=== PATIENT | male | born 1945 | race Caucasian/White ===

== ENCOUNTER 2021-06-21 10:20 | Emergency (ER) | payer MEDICARE, OTHER, SELFPAY ==
[2021-06-21] VITALS (15 sets, daily range): BP systolic 63–174; BP diastolic 35–120; PULSE 94–136; RESP 17–32; TEMP 37.2–37.8; O2SAT 92–98; BMI 25.4
--- NOTE | 2021-06-21 10:40 | EKG12_ITS ---
Test Reason : FALL Blood Pressure : / mmHG Vent. Rate : 114 BPM Atrial Rate : 114 BPM P-R Int : 000 ms QRS Dur : 060 ms QT Int : 362 ms P-R-T Axes : 000 030 049 degrees QTc Int : 498 ms Normal sinus rhythm with PAC's Low voltage QRS ST & T wave abnormality, consider lateral ischemia Abnormal ECG Confirmed by SHIRLENE DEVI, LC ([id number]), online editor MARILUZ MORAN ([id number]) on 06/22/2021 8:00:10 AM Referred By: RADHA Confirmed By:LC GARBER MD
--- NOTE | 2021-06-21 10:43 | ED.RN ---
pt posturing. able to respond and answer very basic questions with yes.no not consistently.
--- NOTE | 2021-06-21 11:19 | CT_ITS ---
EXAM: CT HEAD WITHOUT INTRAVENOUS CONTRAST : 1945 CLINICAL INDICATION: Altered mental status TECHNIQUE: Multiple axial images were obtained of the head without intravenous contrast. This CT exam was performed using one or more of the following dose reduction techniques: automated exposure control, adjustment of the mA and/or kV according to patient size, and/or use of iterative reconstruction technique. This report was created using [employer] report generation technology. COMPARISON: None. FINDINGS: BRAIN AND EXTRA-AXIAL SPACES: The ventricular system and cortical sulci are at the upper limits of normal in size. There is hypoattenuation in the periventricular white matter. There is a lacunar infarct in the left basal ganglia. No intra- or extra-axial hemorrhage. No intracranial mass or mass effect. Posterior fossa structures are unremarkable. Basal cisterns are patent. BONES/JOINTS: Unremarkable. No discrete lytic or blastic abnormalities. SINUSES: Unremarkable as visualized. Clear. MASTOID AIR CELLS: Unremarkable. Clear. ORBITS: Visualized globes, extraocular muscles, optic nerves and retrobulbar fat appear unremarkable. CT/Brain/Head without Contrast IMPRESSION: 1. No acute intracranial abnormality. 2. Underlying small vessel ischemia. There is a lacunar infarct in the left basal ganglia. The elbow Individualized dose optimization techniques were used for this CT. at 1203 Reported and signed by: Enrrique Gustafson MD Electronically Signed: Enrrique Gusatfson MD at 12:02 EDT Tel , Service support ,
[2021-06-21 11:49] LABS: Absolute Lymphocyte Count 0.37 X10^3/uL (0.83-4.51); Absolute Neutrophil Count 8.9 X10^3/uL (2.0-7.7); Basophil# 0.05 X10^3/uL; Basophil% 0.5 % (0-1); Eosinophil# 0.83 X10^3/uL; Eosinophils% 7.7 % (0-5); Hematocrit 37.6 % (40-54); Hemoglobin 12.9 g/dL (13.0-16.5); Lymphocyte # 0.37 X10^3/ul (0.83-4.51); Lymphocyte % 3.4 % (19-41); Mean Corp Hgb Conc 34.3 g/dL (32-36); Mean Corpuscular Hgb 32.7 pg (27.0-32.0); Mean Corpuscular Volume 95.2 fL (80-94); Monocyte# 0.66 X10^3/uL; Monocyte% 6.1 % (0-10); NRBC Flagged by Analyzer 0 % (0-5); Neutrophil # 8.85 X10^3/uL (2.7-7.7); Neutrophil % 81.7 % (47-70); POSITIVE DIFFERENTIAL YES; POSITIVE MORPHOLOGY YES; Platelet Count 135 K/mm3 (150-450); RBC Distribution Width CV 15.8 % (11.6-14.6); RBC Distribution Width SD 54.4 fl (35.1-43.9); Red Blood Count 3.95 M/mm3 (4.6-6.2); White Blood Count 10.8 K/mm3 (4.4-11.0)
--- NOTE | 2021-06-21 11:49 | EDS_ITS ---
HPI History of Present Illness Chief Complaint: Alt LOC Informant: EMS and SNF Onset/Context/Timing Onset: Today Context: Sudden Onset Timing: Continuous Worsened by: Nothing Relieved by: Nothing Narrative Narrative: Patient presents with altered mental status that began after a fall today. Patient only answers yes/no questions. Patient is a poor historian. skilled nursing staff reports that the patient has been incontinent today as well. Nursing staff states that the patient is not normally incontinent. skilled nursing staff is unsure if the patient hit his head when he fell. [facility] Medical History CHF (congestive heart failure) Chronic kidney disease Congestive heart disease Diabetes Failure to thrive Frequent falls Hyperlipidemia Mild cognitive impairment Home Medications allopurinol 300 mg PO DAILY 04/03/15 [History Last Taken 06/20/21] acetaminophen 650 mg PO Q4H PRN 06/21/21 [History Last Taken 06/18/21] bumetanide 1 mg PO DAILY 06/21/21 [History Last Taken 06/20/21] ferrous sulfate 325 mg PO DAILY 06/21/21 [History Last Taken 06/20/21] gabapentin 200 mg PO TID 06/21/21 [History Last Taken 06/20/21] losartan 25 mg PO DAILY 06/21/21 [History Last Taken 06/20/21] potassium chloride 10 meq PO DAILY 06/21/21 [History Last Taken 06/20/21] zolpidem [Ambien] 5 mg PO QHS 06/21/21 [History Last Taken Unknown] Allergy/AdvReac Type Severity Reaction Status Date / Time niacin Allergy Other Verified 06/21/21 10:26 Social History Smoking Status: Former smoker ROS ROS ED Review of Systems ROS Unobtainable: due to mental status EXAM Physical Exam Const Vital Signs: 06/21/21 10:22 06/21/21 11:54 06/21/21 12:00 Temperature 99.9 F H Temperature Source Temporal Pulse Rate 126 H 136 H 122 H Respiratory Rate 17 18 18 Blood Pressure 159/120 H 138/91 H 174/81 H Blood Pressure Mean 133 106 112 Blood Pressure Source Blood Pressure Position Blood Pressure Location Pulse Ox 96 96 95 Oxygen Delivery Method Room Air Room Air Room Air Oxygen Flow Rate (L/min) 06/21/21 13:44 06/21/21 14:00 06/21/21 14:25 Temperature Temperature Source Pulse Rate 121 H 114 H 120 H Respiratory Rate 17 24 H Blood Pressure 154/99 H 109/76 88/57 L Blood Pressure Mean 117 87 67 Blood Pressure Source Blood Pressure Position Blood Pressure Location Pulse Ox 95 96 Oxygen Delivery Method Room Air Room Air Oxygen Flow Rate (L/min) 06/21/21 14:50 06/21/21 14:58 06/21/21 15:34 Temperature Temperature Source Pulse Rate 117 H Respiratory Rate 28 H Blood Pressure 108/72 113/80 90/51 L Blood Pressure Mean 84 91 64 Blood Pressure Source Blood Pressure Position Blood Pressure Location Pulse Ox Oxygen Delivery Method Oxygen Flow Rate (L/min) 06/21/21 16:00 06/21/21 16:25 06/21/21 16:46 Temperature 100.1 F H 99.8 F H Temperature Source Temporal Temporal Pulse Rate 103 H 97 96 Respiratory Rate 32 H 25 H 25 H Blood Pressure 71/40 L 65/38 L 63/36 L Blood Pressure Mean 50 47 45 Blood Pressure Source Monitor Monitor Blood Pressure Position Left Lateral Left Lateral Blood Pressure Location Right Arm Right Arm Pulse Ox 92 95 Oxygen Delivery Method Room Air Room Air Room Air Oxygen Flow Rate (L/min) 93 06/21/21 17:00 Temperature Temperature Source Pulse Rate 94 Respiratory Rate 25 H Blood Pressure 75/35 L Blood Pressure Mean 48 Blood Pressure Source Blood Pressure Position Blood Pressure Location Pulse Ox 94 Oxygen Delivery Method Room Air Oxygen Flow Rate (L/min) Positive well nourished and well developed General Appearance ED: well developed Eyes PERRL and EOMs intact bilaterally Neck supple and no JVD Chest Wall inspection of chest normal and palpation of chest normal Resp normal respiratory effort and clear to auscultation bilaterally Cardio regular rate and regular rhythm GI normal to inspection, nondistended, normoactive bowel sounds and non-tender Palpation: soft Neuro CN's II-XII intact bilaterally and no sensory deficits noted Sensorium / Orientation: alert MDM MDM MDM Narrative Medical decision making narrative: Patient was given IV fluids. EKG was obtained. On my interpretation, it shows sinus tachycardia with a rate of 114 with frequent PACs. There are nonspecific ST-T wave changes in V4, V5, and V6. [place] was normal. QRS interval and QTc intervals are normal. CBC shows hemoglobin of 12.9 hematocrit 37.6. Platelets were 135. Comprehensive metabol ic profile showed a BUN of 22 and a creatinine 1.46. PT with INR and PTT were within normal limits. Total bilirubin was 2.5. Alk phos was 149. AST and ALT were essentially within normal limits. Initial lactate was 5.1. Patient was given a dose of Unasyn here. Urinalysis does not show any evidence of urinary tract infection. Portable chest x-ray was obtained. There is trace left pleural effusion. There is no acute cardiopulmonary process noted. There may be a hiatal hernia. This was interpreted by myself. Radiologist also interpreted the x-ray and agrees. CT scan of the brain was obtained. There is no acute intracranial abnormality. This was interpreted by the radiologist and reviewed by myself. Repeat lactate was 4.3. There was bilateral flank ecchymosis noted on reevaluation. Because of this, CT scan of the abdomen pelvis was obtained without contrast. There is large amount of free fluid in the abdomen and pelvis. There is no free air. This was interpreted by the radiologist and reviewed by myself. Since the patient has no history of liver disease and his liver function tests are essentially within normal limits along with the recent fall, the fluid in the abdomen and pelvis could be blood. I discussed the findings with the patient's power of civil litigation attorney. We discussed treatment options including transfer to a trauma center for possible surgical exploration or making the patient hospice. She wanted to talk to her regarding treatment options. Patient did have other episodes of hypotension and was responsive to IV fluids. Patient was typed and crossed for 2 units of blood. The transfusion was started. I discussed the case again with the patient's power of civil litigation attorney. At this time she wants patient to be transferred to a trauma center for further evaluation. I discussed the case with trauma surgeon at [facility]. She recommended giving the patient 2 units of fresh frozen plasma and a unit of platelets. These were ordered. Patient will be transferred to [facility] via [facility]. Lab Data Attestation: I reviewed the patient's lab results. Labs: Laboratory Results - last 24 hr 06/21/21 06/21/21 06/21/21 10:10 10:10 11:40 WBC 10.8 RBC 3.95 L Hgb 12.9 L Hct 37.6 L MCV 95.2 H MCH 32.7 H MCHC 34.3 RDW Std Deviation 54.4 H RDW Coeff of Dennis 15.8 H Plt Count 135 L MPV 12.0 Immature Gran % (Auto) 0.600 Neut % (Auto) 81.7 H Lymph % (Auto) 3.4 L [place] % (Auto) 6.1 Eos % (Auto) 7.7 H Baso % (Auto) 0.5 Absolute Neuts (auto) 8.9 H Absolute Lymphs (auto) 0.37 L Nucleated RBC % 0 Platelet Estimate SLT DEC RBC Morphology NORM C+C PT 16.1 H INR 1.4 APTT 33.0 Sodium 138 Potassium 3.9 Chloride 102 Carbon Dioxide 23.0 Anion Gap 13 BUN 22 H Creatinine 1.46 H Estim Creat Clear Calc 42.29 Est GFR (MDRD) Af Amer 60 Est GFR (MDRD) Non-Af 50 L BUN/Creatinine Ratio 15.1 Glucose 140 H Lactic Acid Calcium 9.3 Total Bilirubin 2.50 H AST 47 H ALT 30 Alkaline Phosphatase 149 H Troponin I High Sens 43 Total Protein 6.8 Albumin 2.3 L Globulin 4.5 H Albumin/Globulin Ratio 0.5 L Urine Color Urine Clarity Urine pH Ur Specific [place] Urine Protein Urine Glucose (UA) Urine Ketones Urine Occult Blood Urine Nitrite Urine Bilirubin Urine Urobilinogen Ur Leukocyte Esterase Urine RBC Urine WBC Ur Squamous Epith Cells Urine Bacteria Urine Mucus Blood Type Antibody Screen Crossmatch 06/21/21 06/21/21 06/21/21 11:40 12:05 14:50 WBC RBC Hgb Hct MCV MCH MCHC RDW Std Deviation RDW Coeff of Dennis Plt Count MPV Immature Gran % (Auto) Neut % (Auto) Lymph % (Auto) [place] % (Auto) Eos % (Auto) Baso % (Auto) Absolute Neuts (auto) Absolute Lymphs (auto) Nucleated RBC % Platelet Estimate RBC Morphology PT INR APTT Sodium Potassium Chloride Carbon Dioxide Anion Gap BUN Creatinine Estim Creat Clear Calc Est GFR (MDRD) Af Amer Est GFR (MDRD) Non-Af BUN/Creatinine Ratio Glucose Lactic Acid 5.1 H* Calcium Total Bilirubin AST ALT Alkaline Phosphatase Troponin I High Sens Total Protein Albumin Globulin Albumin/Globulin Ratio Urine Color Yellow Urine Clarity Sl. Cloudy Urine pH 6.0 Ur Specific [place] 1.015 Urine Protein Negative Urine Glucose (UA) Normal Urine Ketones Negative Urine Occult Blood Negative Urine Nitrite Negative Urine Bilirubin Negative Urine Urobilinogen Normal Ur Leukocyte Esterase Negative Urine RBC 0 SEEN Urine WBC 0 SEEN Ur Squamous Epith Cells 0-5 SEEN Urine Bacteria 0 SEEN Urine Mucus 0 SEEN Blood Type O POSITIVE Antibody Screen NEGATIVE Crossmatch 06/21/21 06/21/21 14:50 15:58 WBC RBC Hgb Hct MCV MCH MCHC RDW Std Deviation RDW Coeff of [place] Plt Count MPV Immature Gran % (Auto) Neut % (Auto) Lymph % (Auto) [place] % (Auto) Eos % (Auto) Baso % (Auto) Absolute Neuts (auto) Absolute Lymphs (auto) Nucleated RBC % Platelet Estimate RBC Morphology PT INR APTT Sodium Potassium Chloride Carbon Dioxide Anion Gap BUN Creatinine Estim Creat Clear Calc Est GFR (MDRD) Af Amer Est GFR (MDRD) Non-Af BUN/Creatinine Ratio Glucose Lactic Acid 4.3 H* Calcium Total Bilirubin AST ALT Alkaline Phosphatase Troponin I High Sens Total Protein Albumin Globulin Albumin/Globulin Ratio Urine Color Urine Clarity Urine pH Ur Specific [place] Urine Protein Urine Glucose (UA) Urine Ketones Urine Occult Blood Urine Nitrite Urine Bilirubin Urine Urobilinogen Ur Leukocyte Esterase Urine RBC Urine WBC Ur Squamous Epith Cells Urine Bacteria Urine Mucus Blood Type Antibody Screen Crossmatch See Detail Radiography Diagnostic Testing: Radiology Impression Brain CT 06/21/21 11:19 IMPRESSION: 1. No acute intracranial abnormality. 2. Underlying small vessel ischemia. There is a lacunar infarct in the left basal ganglia. The elbow Individualized dose optimization techniques were used for this CT. at 1203 Reported and signed by: Enrrique Gustafson MD Electronically Signed: Enrrique Gustafson MD at 12:02 EDT Tel , Service support , Chest X-Ray 06/21/21 12:05 IMPRESSION: Retrocardiac lucency which may represent a hiatal hernia. There is a trace left-sided effusion. at 1229 Reported and signed by: Enrrique Gustafson MD Electronically Signed: Enrrique Gustafson MD at 12:28 EDT Tel , Service support , Abdomen/Pelvis CT 06/21/21 13:24 IMPRESSION: 1. Bilateral effusions larger on the left than on the right with bibasilar atelectasis or pneumonia. 2. Large amount of free fluid in the abdomen and pelvis with may represent ascites. 3. Ventral hernia which contains a loop of small bowel. There is no obstruction identified. Individualized dose optimization techniques were used for this CT. at 1429 Reported and signed by: Enrrique Gustafson MD Electronically Signed: Enrrique Gustafson MD at 14:28 EDT Tel , Service support , EKG Initial EKG: Attestation: I personally reviewed and interpreted this EKG as follows: Interpretation: Sinus Tachycardia (114) and Non-Specific ST Changes Critical Care Time Critical care time (excluding procedures): 30-74 minutes (42), Including time spent:, Discussing w/Patient &/or Family/Twister Frame Tender, Discussing w/Consultants, Arranging Admission or Transfer and Performing Direct Patient Care at Bedside Discharge Plan Triage Chief Complaint: Alt LOC ED Provider: Karlos Parker Dx/Rx/DC Orders Clinical Impression: Active internal bleeding, Hypotension Prescriptions: No Action allopurinol 300 MG tablet 300 mg PO DAILY RF: 0 potassium chloride 10 mEq Tablet Extended Release 10 meq PO DAILY RF: 0 ferrous sulfate 325 mg (65 mg iron) Tablet 325 mg PO DAILY RF: 0 losartan 25 mg Tablet 25 mg PO DAILY RF: 0 bumetanide 1 mg Tablet 1 mg PO DAILY RF: 0 acetaminophen 325 mg Tablet 650 mg PO Q4H PRN (Reason: PAIN AND FEVER) RF: 0 zolpidem [Ambien] 5 mg tablet 5 mg PO QHS RF: 0 gabapentin 100 mg capsule 200 mg PO TID RF: 0 Primary Care Provider: Yemi Verma Referrals: Yemi Verma MD [Primary Care Provider] - Disposition Disposition: Acute Care Hospital Discharge Location: [facility]
[2021-06-21 11:50] LABS: Differential Indicated SCAN CRITERIA MET
[2021-06-21 11:55] LABS: International Normalized Ratio 1.4; Prothrombin Time (Protime)PT. 16.1 SECONDS (11.7-14.9)
[2021-06-21 12:04] LABS: ALB/GLOB Ratio 0.5 RATIO (0.9-2.4); AST(SGOT) 47 U/L (15-37); Alanine Aminotransfer ALT/SGPT 30 U/L (16-61); Albumin, Serum 2.3 g/dL (3.2-5.0); Alkaline Phosphatase 149 U/L (45-117); Anion Gap 13 (5-15); BUN 22 mg/dL (7-18); BUN/Creat Ratio 15.1 RATIO (10-20); Calcium,Total 9.3 mg/dL (8.5-10.1); Chloride 102 mmol/L (98-107); Creatinine, Serum 1.46 mg/dL (0.70-1.30); EST Glomerular Filtration Rate 50 mL/min (>60); Est Glom Filt Rate - Afr Amer 60 mL/min (>60); Estimated Creatinine Clearance 42.29 ml/min; Globulin 4.5 g/dL (2.2-4.2); Glucose 140 mg/dL (74-106); Potassium 3.9 mmol/L (3.5-5.1); Protein, Total 6.8 g/dL (6.4-8.2); Sodium Level 138 mmol/L (136-145); Troponin-I HS 43 pg/mL (3.0-78.0)
--- NOTE | 2021-06-21 12:05 | RAD_ITS ---
EXAM: XR CHEST, 1 VIEW : 1945 CLINICAL INDICATION: Cough TECHNIQUE: Frontal view of the chest. This report was created using [employer] report generation technology. COMPARISON: None. FINDINGS: LUNGS AND PLEURAL SPACES: There is minimal blunting the left costophrenic angle which may represent a trace effusion or scarring. No pneumothorax. HEART: Unremarkable. Cardiac silhouette not enlarged. MEDIASTINUM: There is a retrocardiac lucency which may represent a hiatal hernia. BONES/JOINTS: Unremarkable. SOFT TISSUES: Unremarkable. RAD/Chest 1 View (Portable) IMPRESSION: Retrocardiac lucency which may represent a hiatal hernia. There is a trace left-sided effusion. at 1229 Reported and signed by: Enrrique Gustafson MD Electronically Signed: Enrrique Gustafson MD at 12:28 EDT Tel , Service support ,
[2021-06-21 12:08] LABS: Bacteria 0 SEEN /hpf (None Seen); Mucous, Urine 0 SEEN /hpf (<or=2+); Red Blood Cells-Urine 0 SEEN /hpf (0-5); White Blood Cells 0 SEEN /hpf (0-5)
[2021-06-21 12:11] LABS: Color, Urine Yellow (Yellow); Glucose, Dipstick Normal (Normal); Ketone-Dipstick Negative (Negative); Leukocyte Esterase-Dipstick Negative /ul (Negative); Nitrite-Dipstick Negative (Negative); Occult Blood-Urine Negative /ul (Negative); Protein-Dipstick Negative (Negative); Specific Gravity, Urine 1.015 (1.002-1.030); Urine Bilirubin Dipstick Negative (Negative); Urine Clarity Sl. Cloudy (Clear); Urine Urobilinogen Normal (Normal)
[2021-06-21 12:13] LABS: Platelet Estimate SLT DEC (ADEQ); Red Cell Morphology NORM C+C NORMAL (NORM C&C)
[2021-06-21 12:18] LABS: Squamous Epithelial Cells - UA 0-5 SEEN /hpf (0-5)
[2021-06-21 12:22] LABS: Lactic Acid 5.1 mmol/L (0.4-1.9)
--- NOTE | 2021-06-21 13:24 | CT_ITS ---
EXAM: CT ABDOMEN AND PELVIS WITHOUT INTRAVENOUS CONTRAST : 1945 CLINICAL INDICATION: Bilateral flank pain TECHNIQUE: Helically acquired images were obtained of the abdomen and pelvis without intravenous contrast. This CT exam was performed using one or more of the following dose reduction techniques: automated exposure control, adjustment of the mA and/or kV according to patient size, and/or use of iterative reconstruction technique. This report was created using [employer] report generation technology. COMPARISON: None. FINDINGS: LOWER THORAX: There are bilateral effusions with bilateral lower lobe consolidation greater on the left than on the right. There is a small hiatal hernia present. No cardiomegaly. ABDOMEN: LIVER: Unremarkable. Homogeneous. GALLBLADDER AND BILE DUCTS: Unremarkable. No calcified gallstones. No gallbladder distention or wall edema. No intra- or extrahepatic biliary ductal dilation. PANCREAS: Unremarkable. No focal cystic mass. SPLEEN: Unremarkable. Normal size without focal cystic or solid mass. ADRENALS: Unremarkable. No nodules. KIDNEYS AND URETERS: There are low-density masses on the right kidney which may represent cysts. No follow-up imaging is necessary. No hydronephrosis. STOMACH AND BOWEL: There is a ventral hernia which contains a loop of small bowel. There is no obstruction identified. No focal inflammatory change. PELVIS: APPENDIX: No evidence of acute appendicitis. BLADDER: There is a Toney catheter in the bladder. REPRODUCTIVE: Unremarkable as visualized. No mass. ABDOMEN and PELVIS: INTRAPERITONEAL SPACE: There is a moderate to large amount of free fluid seen within the abdomen and pelvis which may represent ascites. No free air. BONES/JOINTS: Unremarkable. No suspicious lytic or blastic abnormality. SOFT TISSUES: See above. VASCULATURE: Unremarkable. Abdominal aorta is non-dilated. LYMPH NODES: Unremarkable. No enlarged lymph nodes. CT/Abdomen/Pelvis without Cont IMPRESSION: 1. Bilateral effusions larger on the left than on the right with bibasilar atelectasis or pneumonia. 2. Large amount of free fluid in the abdomen and pelvis with may represent ascites. 3. Ventral hernia which contains a loop of small bowel. There is no obstruction identified. Individualized dose optimization techniques were used for this CT. at 1429 Reported and signed by: Enrrique Gustafson MD Electronically Signed: Enrrique Gustafson MD at 14:28 EDT Tel , Service support ,
--- NOTE | 2021-06-21 13:59 | ED.RN ---
LORI HONEYCUTT PHONE NUMBER FOR INFO AND UPDATES [phone]
[2021-06-21] MEDS: 0.9% Normal Saline 1,000 ML 999 ML IV ×3 (14:28→17:19)
[2021-06-21] MEDS: Acetaminophen 650 MG Suppository RC (14:57)
[2021-06-21 15:44] LABS: Reflex Lactate? Y
[2021-06-21 16:45] LABS: Lactic Acid 4.3 mmol/L (0.4-1.9)
--- NOTE | 2021-06-21 17:18 | ED.RN ---
THIS NURSE UPDATED THE FAMILY OF PT DISPOSITION. PT TO BE TRANSFERRED TO [facility].
--- NOTE | 2021-06-21 22:53 | ED.RN ---
lab called with critical lab results. blood cultures positive in all 4 bottles. blood cultures gram + cocci. Patient was transferred to [facility]. critical findings given to Parisa Law in ER
== END 2021-06-21 17:54 | disposition short-term general hospital (02) ==
PROVIDERS: Emergency Provider Emergency Medicine; PCP Family Medicine
DX: R58 Hemorrhage, not elsewhere classified (principal); I95.9 Hypotension, unspecified; I50.9 Heart failure, unspecified; Z87.891 Personal history of nicotine dependence; Z79.899 Other long term (current) drug therapy
CPT/HCPCS: 36415; 36430; 51702; 70450; 71045; 74176; 80053; 81001; 83605; 84484; 85025; 85610; 85730; 86850; 86900; 86901; 86920; 87040; 87149; 87186; 87426; 93005; 96365; 99285; J7030; J7040; P9016; A4216; J0295

== ENCOUNTER → 2021-07-20 | Outpatient (REF) | payer SELFPAY ==
[2021-07-20 08:10] LABS: Bacteria 0 SEEN /hpf (None Seen); Mucous, Urine 0 SEEN /hpf (<or=2+); Red Blood Cells-Urine 0 SEEN /hpf (0-5); Squamous Epithelial Cells - UA 0 SEEN /hpf (0-5); White Blood Cells 0 SEEN /hpf (0-5)
[2021-07-20 08:34] LABS: Color, Urine Yellow (Yellow); Glucose, Dipstick Normal (Normal); Ketone-Dipstick Negative (Negative); Leukocyte Esterase-Dipstick Negative /ul (Negative); Nitrite-Dipstick Negative (Negative); Occult Blood-Urine 10 /ul (Negative); Protein-Dipstick Negative (Negative); Urine Bilirubin Dipstick Negative (Negative); Urine Clarity Clear (Clear); Urine Urobilinogen Normal (Normal)
[2021-07-20 08:43] LABS: Calcium Oxalate Crystals Ur 1+ /hpf (<or=2+)
== END | disposition home or self-care (01) ==
LOC: OLS.ACH 04:10
PROVIDERS: PCP Family Medicine; Visit Provider Family Medicine
DX: M62.81 Muscle weakness (generalized) (principal); R26.9 Unspecified abnormalities of gait and mobility
CPT/HCPCS: 81001; 87086

== ENCOUNTER 2021-10-03 22:10 | Emergency (ER) | payer MEDICARE, OTHER, SELFPAY ==
[2021-10-03 22:12] VITALS: BP 138/92; PULSE 104; RESP 28; TEMP 36.5; O2SAT 94; BMI 22.7
[2021-10-03 22:18] VITALS: BP 138/92; PULSE 100; RESP 28; TEMP 36.5; O2SAT 94
--- NOTE | 2021-10-03 22:21 | CT_ITS ---
EXAM: CT HEAD WITHOUT INTRAVENOUS CONTRAST CLINICAL INDICATION: changed mental status TECHNIQUE: Multiple axial images were obtained of the head without intravenous contrast. CTDIvol = ( 44.99 ) mGy, DLP = ( 812.98 ) mGycm This CT exam was performed using one or more of the following dose reduction techniques: automated exposure control, adjustment of the mA and/or kV according to patient size, and/or use of iterative reconstruction technique. This report was created using [employer] report generation technology. COMPARISON: CT head 06/21/2021 FINDINGS: BRAIN AND EXTRA-AXIAL SPACES: No acute intracranial hemorrhage, mass effect or edema. No evidence of acute cortical stroke. Periventricular small vessel ischemic change. No midline shift or hydrocephalus. Diffuse parenchymal atrophy. Posterior fossa structures are unremarkable. Basal cisterns are patent. BONES/JOINTS: Unremarkable. No discrete lytic or blastic abnormalities. VASCULATURE: Atherosclerotic calcifications of the carotid siphons and vertebrobasilar arteries. SINUSES: Unremarkable as visualized. Clear. MASTOID AIR CELLS: Visualized sinuses and mastoid air cells are clear. ORBITS: Visualized globes, extraocular muscles, optic nerves and retrobulbar fat appear unremarkable. CT/Brain/Head without Contrast IMPRESSION: 1. No evidence of acute intracranial pathology. 2. Diffuse involutional changes and chronic ischemic small vessel white matter disease. Electronically Signed: Deven Otero MD at 23:00 EST Tel , Service support ,
--- NOTE | 2021-10-03 22:22 | EKG12_ITS ---
Test Reason : NON VERBAL Blood Pressure : / mmHG Vent. Rate : 102 BPM Atrial Rate : 110 BPM P-R Int : 000 ms QRS Dur : 064 ms QT Int : 354 ms P-R-T Axes : 000 -05 030 degrees QTc Int : 461 ms Normal sinus rhythm Nonspecific ST and T wave abnormality Abnormal ECG Confirmed by SHIRLENE DEVI, LC ([id number]), food expeditor MARILUZ MORAN ([id number]) on 10/04/2021 1:08:32 PM Referred By: NOEL Confirmed By:LC GARBER MD
--- NOTE | 2021-10-03 22:26 | EDS_ITS ---
HPI History of Present Illness Chief Complaint: General Illness Informant: EMS Narrative Narrative: Only available information is through EMS at this time. Patient's brought in for decreased verbal response of 4 hours or more. This patient is on hospice care for nonalcoholic cirrhosis. He also has multiple other medical problems. Hospice care was revoked to bring him in here because his alertness has decreased. Further details are unobtainable at this time. I did review some of the hospice paperwork that talked about his baseline. It appears as though he has had elevated ammonia and was on lactulose possibly in the hospital. However, I do not see any lactulose prescribed to him currently. I also note on a CAT scan report from approximately the middle of August that it does show an umbilical hernia that is found clinically now. Family also told EMS that he is still DNR Comfort Care arrest but is not to be intubated for any reason. [facility] Medical History (Updated 10/04/21 @ 00:[address] Ronaldo Ray MD) CHF (congestive heart failure) Chronic kidney disease Congestive heart disease Diabetes Failure to thrive Frequent falls Hyperlipidemia Mild cognitive impairment Pancytopenia Home Medications allopurinol 300 mg PO DAILY 04/03/15 [History Last Taken 06/20/21] acetaminophen 650 mg PO Q4H PRN 06/21/21 [History Last Taken 06/18/21] bumetanide 1 mg PO DAILY 06/21/21 [History Last Taken 06/20/21] ferrous sulfate 325 mg PO DAILY 06/21/21 [History Last Taken 06/20/21] gabapentin 200 mg PO TID 06/21/21 [History Last Taken 06/20/21] losartan 25 mg PO DAILY 06/21/21 [History Last Taken 06/20/21] potassium chloride 10 meq PO DAILY 06/21/21 [History Last Taken 06/20/21] zolpidem [Ambien] 5 mg PO QHS 06/21/21 [History Last Taken Unknown] cholecalciferol (vitamin D3) 125 mcg (5,000 unit) capsule 125 mcg PO DAILY 08/26/21 [History Last Taken Unknown] metoprolol tartrate 25 mg tablet 25 mg PO DAILY 08/26/21 [History Last Taken Unknown] Allergy/AdvReac Type Severity Reaction Status Date / Time niacin Allergy Severe Other Verified 08/26/21 09:07 Family History Mother Diabetes Father Diabetes Black lung Surgical History (Updated 10/03/21 @ 23:[address] Joselin Bolden MD) H/O knee surgery History of hernia repair History of surgery on arm Social History Smoking Status: Never smoker second hand exposure: No details: very rarely substance use type: does not use jarred/anabaptism: Mormonism seatbelt use: always do you feel safe at home: Yes ROS ROS ED ROS Narrative Patient is completely nonverbal. Review of systems is unable to be obtained. EXAM Physical Exam Const Vital Signs: 10/03/21 22:12 10/03/21 22:18 10/04/21 00:51 Temperature 97.7 F L 97.7 F L Temperature Source Temporal Temporal Pulse Rate 104 H 100 108 H Respiratory Rate 28 H 28 H 29 H Respiratory Pattern Tachypnea Blood Pressure 138/92 H 138/92 H 130/82 H Blood Pressure Mean 107 107 98 Pulse Ox 94 94 98 Oxygen Delivery Method Room Air Room Air Room Air 10/04/21 01:58 10/04/21 02:04 Temperature Temperature Source Pulse Rate 109 H 105 H Respiratory Rate 31 H 32 H Respiratory Pattern Blood Pressure 131/81 H 136/81 H Blood Pressure Mean 97 99 Pulse Ox 98 Oxygen Delivery Method Positive cachectic General Appearance ED: cachectic; Negative for cyanotic, diaphoretic or pallor Nutritional Appearance: cachectic HEENT Reports dry mucous membranes Mouth ED: Yes dry mucous membranes Mouth: dry mucous membranes Eyes Eyes Narrative: Eyes tend to rove back and forth left to right. They do cross over midline. Pupils are about 3 mm and react down to about 2 mm with light. General Eye ED: Negative for pale conjunctiva Neck no JVD Chest Wall inspection of chest normal Resp No normal respiratory effort Resp Narrative: Slightly increased respiratory effort. However, I do not hear rales rhonchi or wheezing. Auscultation: Negative for rales, rhonchi or diminished lung sounds Cardio regular rate and regular rhythm GI normal to inspection, nondistended, normoactive bowel sounds and non-tender GI Narrative: Abdomen is soft. It is not distended. It does not appear to have a fluid wave. Bowel sounds are just slightly increased. He does have an umbilical hernia that is not easily reduced. There is a little duskiness to the skin. However there is no apparent discomfort with palpation. Again, I do find indication that the hernia has been there for at least a month based on prior CT scan. I do not find documentation as to its appearance at that time. Palpation: soft Extremity Extremity Narrative: Diffusely thin extremities with muscle wasting. There is some slight abrasions likely from being in bed mostly found on the knees. Neuro Neuro Narrative: Patient is nonverbal. There is no indication of response to verbal or slightly painful stimuli. He did not move with an IV placement. He has a GCS of 3. However, I did get strict instructions through EMS by the family that he is not to be intubated or placed on a ventilator. He is maintaining saturations now. Psych Mood & Affect: depressed Skin Skin Narrative: Slight decubitus. General Skin Exam: Negative for jaundice or pallor MDM MDM MDM Narrative Medical decision making narrative: 22: 49 Power of county attorney and neighbors came with the patient. They are the ones that watching on him. The patient still lives alone. They last saw him normal yesterday at around 3 or so in the afternoon. He did not call this morning as would be his normal. However, some days on Monday he does not call. They checked in with him this afternoon. He was talking but was not really answering questions. He would say yes to almost all questions. He was not oriented. They contacted hospice who came out to evaluate him. He has gotten progressively worse. They state this is the worst they have ever seen him. They are under the understanding that he wanted simple things done to keep him healthy but nothing major. We did go over his history. Although the lactulose is not on his med list they state that there is a bottle of lactulose in his house and they think he is taking it. However he does complain that it causes diarrhea. I asked if the power of county attorney was familiar with the patient's hernia. He states the patient has stated he has a hernia. He evidently started having problems with it Monday of this week where it started actually hurting him. That is not something he had complained about more. But the power of county attorney does not know if that progressed during the week or not. 00: 30 I have had several discussions with the neighbor who is also power of county attorney. He is talked to his who is copower of county attorney. I explained Patricio that the patient has a very elevated ammonia. He also has signs of bowel obstruction with incarcerated hernia. He has a GCS of 3 with elevated lactate and elevated white count. I explained that it is possible to have surgery but his recovery from this would be relatively poor considering his overall health and the condition he is in acutely. This patient has had some discomfort of his hernia now for about 5 or 6 days. Evidently the patient never wanted to be in a halfway at all. He did not want any prolonged hospital stay or significant procedure. He does not want to be on a ventilator for any reason. For this reason they feel he would not want to proceed with surgery at this time. They were under the impression that he was actually DO NOT RESUSCITATE but some of the paperwork was done as Comfort Care arrest. They felt this does not accurately represent the patient's wishes. I also discussed the case with Patty, the nurse on for hospice. She was also under the impression that he did not want aggressive care. For this reason we will admit him medically. We have given lactulose rectally. My expectation that this patient will not likely survive from this event. 00: 50 I talked with our hospitalist. Also, the hospice nurse called back. It was thought that this patient had to be off hospice for 24 hours. However, since it is technically the next day, they can take him back to the hospice facility. I also found that the patient had gone from home to the hospice inpatient facility with expected nonsurvivability. However, there was hesitation on the part of the power of county attorney on what to do so he was transferred here. I think now that we know the diagnosis and the expected outcome everyone is more comfortable. Everyone feels like the patient would not want aggressive therapy at this point. He would not want to have surgery. This illness will cause his . However, we can get him back to the hospice center so we can make him comfortable and care for him. Lab Data Labs: Laboratory Results - last 24 hr 10/03/21 10/03/21 10/03/21 22:21 22:21 22:21 WBC 13.9 H RBC 4.74 Hgb 15.1 Hct 44.1 MCV 93.0 MCH 31.9 MCHC 34.2 RDW Std Deviation 53.6 H RDW Coeff of Dennis 16.0 H Plt Count 219 MPV 11.3 Immature Gran % (Auto) 0.500 Neut % (Auto) 82.4 H Lymph % (Auto) 6.0 L [place] % (Auto) 10.8 H Eos % (Auto) 0.1 Baso % (Auto) 0.2 Absolute Neuts (auto) 11.5 H Absolute Lymphs (auto) 0.84 Nucleated RBC % 0 PT 16.4 H INR 1.4 Sodium 137 Potassium 5.4 H Chloride 108 H Carbon Dioxide 16.0 L Anion Gap 13 BUN 54 H Creatinine 1.74 H Estim Creat Clear Calc 36.68 Est GFR (MDRD) Af Amer 49 L Est GFR (MDRD) Non-Af 41 L BUN/Creatinine Ratio 31.0 H Glucose 125 H Lactic Acid Calcium 10.2 H Total Bilirubin 1.80 H AST 38 H ALT 22 Alkaline Phosphatase 107 Ammonia Total Protein 7.1 Albumin 2.7 L Globulin 4.4 H Albumin/Globulin Ratio 0.6 L Lipase 465 H Urine Color Urine Clarity Urine pH Ur Specific [place] Urine Protein Urine Glucose (UA) Urine Ketones Urine Occult Blood Urine Nitrite Urine Bilirubin Urine Urobilinogen Ur Leukocyte Esterase Urine RBC Urine WBC Ur Squamous Epith Cells Urine Bacteria Urine Mucus 10/03/21 10/03/21 10/04/21 22:21 22:21 00:40 WBC RBC Hgb Hct MCV MCH MCHC RDW Std Deviation RDW Coeff of [place] Plt Count MPV Immature Gran % (Auto) Neut % (Auto) Lymph % (Auto) [place] % (Auto) Eos % (Auto) Baso % (Auto) Absolute Neuts (auto) Absolute Lymphs (auto) Nucleated RBC % PT INR Sodium Potassium Chloride Carbon Dioxide Anion Gap BUN Creatinine Estim Creat Clear Calc Est GFR (MDRD) Af Amer Est GFR (MDRD) Non-Af BUN/Creatinine Ratio Glucose Lactic Acid 4.9 H* Calcium Total Bilirubin AST ALT Alkaline Phosphatase Ammonia 287.0 H Total Protein Albumin Globulin Albumin/Globulin Ratio Lipase Urine Color Yellow Urine Clarity Clear Urine pH 6.0 Ur Specific [place] 1.015 Urine Protein 15 H Urine Glucose (UA) Normal Urine Ketones 5 H Urine Occult Blood Negative Urine Nitrite Negative Urine Bilirubin Negative Urine Urobilinogen Normal Ur Leukocyte Esterase Negative Urine RBC 0 SEEN Urine WBC 0 SEEN Ur Squamous Epith Cells 0 SEEN Urine Bacteria RARE Urine Mucus 0 SEEN Radiography Diagnostic Testing: Clinical Impression(s) from Imaging Studies Brain CT 10/03/21 22:21 IMPRESSION: 1. No evidence of acute intracranial pathology. 2. Diffuse involutional changes and chronic ischemic small vessel white matter disease. Electronically Signed: Deven Otero MD at 23:00 EST Tel , Service support , Abdomen/Pelvis CT 10/03/21 23:13 IMPRESSION: At least a moderate grade mid-level small bowel bowel obstruction with associates distention of the stomach. Obstruction is likely related to an incarcerated umbilical hernia containing a loop of small bowel with fluid in the hernia sac. Moderate to severe compression fracture of the T7 vertebral body. This may be acute or subacute. No underlying pathology or retropulsion. Electronically Signed: Deven Otero MD at 23:55 EST Tel , Service support , ADDENDUM: 10/04/21 0013 Chest X-Ray 10/03/21 23:25 IMPRESSION: Heterogeneous opacities at the left base probably represent partial atelectasis although aspiration and pneumonia can have a similar appearance. Electronically Signed: Deven Otero MD at 23:40 EST Tel , Service support , EKG Initial EKG: Comments: EKG done for borderline tachycardia read by me shows a normal sinus rhythm with tachycardic rate at 102. There is a fair amount of baseline variation. No acute ST elevation or depression. No ventricular ectopy noted. MS interval, QRS duration and QTc are normal. Discharge Plan Triage Chief Complaint: General Illness ED Provider: Ronaldo Ray Dx/Rx/DC Orders Clinical Impression: Strangulated umbilical hernia, SBO (small bowel obstruction), Acidosis, lactic, Hospice care, Unresponsive state Instructions: Small Bowel Obstruction, What Is Hospice? Prescriptions: No Action metoprolol tartrate 25 mg tablet 25 mg PO DAILY RF: 0 cholecalciferol (vitamin D3) 125 mcg (5,000 unit) capsule 125 mcg PO DAILY RF: 0 allopurinol 300 MG tablet 300 mg PO DAILY RF: 0 potassium chloride 10 mEq Tablet Extended Release 10 meq PO DAILY RF: 0 ferrous sulfate 325 mg (65 mg iron) Tablet 325 mg PO DAILY RF: 0 losartan 25 mg Tablet 25 mg PO DAILY RF: 0 bumetanide 1 mg Tablet 1 mg PO DAILY RF: 0 acetaminophen 325 mg Tablet 650 mg PO Q4H PRN (Reason: PAIN AND FEVER) RF: 0 zolpidem [Ambien] 5 mg tablet 5 mg PO QHS RF: 0 gabapentin 100 mg capsule 200 mg PO TID RF: 0 Primary Care Provider: Yemi Verma Referrals: Yemi Verma MD [Primary Care Provider] - Disposition Disposition: Hospice in Medical Facility Discharge Location: [facility] Discharge Date/Time: 10/04/21 03:28
[2021-10-03 22:41] LABS: Absolute Lymphocyte Count 0.84 X10^3/uL (0.83-4.51); Absolute Neutrophil Count 11.5 X10^3/uL (2.0-7.7); Basophil# 0.03 X10^3/uL; Basophil% 0.2 % (0-1); Eosinophil# 0.01 X10^3/uL; Eosinophils% 0.1 % (0-5); Hematocrit 44.1 % (40-54); Hemoglobin 15.1 g/dL (13.0-16.5); Lymphocyte # 0.84 X10^3/ul (0.83-4.51); Mean Corp Hgb Conc 34.2 g/dL (32-36); Mean Corpuscular Hgb 31.9 pg (27.0-32.0); Mean Platelet Vol. 11.3 fl (6.2-12.0); Monocyte% 10.8 % (0-10); NRBC Flagged by Analyzer 0 % (0-5); Neutrophil # 11.49 X10^3/uL (2.7-7.7); Neutrophil % 82.4 % (47-70); Platelet Count 219 K/mm3 (150-450); RBC Distribution Width SD 53.6 fl (35.1-43.9); Red Blood Count 4.74 M/mm3 (4.6-6.2); White Blood Count 13.9 K/mm3 (4.4-11.0)
[2021-10-03 22:46] LABS: International Normalized Ratio 1.4; Prothrombin Time (Protime)PT. 16.4 SECONDS (11.7-14.9)
[2021-10-03 23:05] LABS: Lactic Acid 4.9 mmol/L (0.4-1.9)
[2021-10-03 23:06] LABS: ALB/GLOB Ratio 0.6 RATIO (0.9-2.4); AST(SGOT) 38 U/L (15-37); Alanine Aminotransfer ALT/SGPT 22 U/L (16-61); Albumin, Serum 2.7 g/dL (3.2-5.0); Alkaline Phosphatase 107 U/L (45-117); Anion Gap 13 (5-15); BUN 54 mg/dL (7-18); Calcium,Total 10.2 mg/dL (8.5-10.1); Chloride 108 mmol/L (98-107); Creatinine, Serum 1.74 mg/dL (0.70-1.30); EST Glomerular Filtration Rate 41 mL/min (>60); Est Glom Filt Rate - Afr Amer 49 mL/min (>60); Estimated Creatinine Clearance 36.68 ml/min; Globulin 4.4 g/dL (2.2-4.2); Glucose 125 mg/dL (74-106); Lipase 465 U/L (73-393); Potassium 5.4 mmol/L (3.5-5.1); Protein, Total 7.1 g/dL (6.4-8.2); Sodium Level 137 mmol/L (136-145)
--- NOTE | 2021-10-03 23:13 | CT_ITS ---
We are attempting to reach an attending provider to discuss findings. An addendum with communication details will be sent when the communication is complete. EXAM: CT ABDOMEN AND PELVIS WITHOUT INTRAVENOUS CONTRAST CLINICAL INDICATION: Umbilical hernia, elevated lactate, elevated white TECHNIQUE: Helically acquired images were obtained of the abdomen and pelvis without intravenous contrast. CTDIvol = ( 7.78 ) mGy, DLP = ( 495.53 ) mGycm This CT exam was performed using one or more of the following dose reduction techniques: automated exposure control, adjustment of the mA and/or kV according to patient size, and/or use of iterative reconstruction technique. This report was created using [employer] report [employer] technology. COMPARISON: None. FINDINGS: LOWER THORAX: Scarring or partial atelectasis at the inferior lingula. Small left pleural effusion with adjacent passive atelectasis No cardiomegaly. No significant pericardial effusion. ABDOMEN: LIVER: Unremarkable. Homogeneous. GALLBLADDER AND BILE DUCTS: Unremarkable. No calcified gallstones. No gallbladder distention or wall edema. No intra- or extrahepatic biliary ductal dilation. PANCREAS: Unremarkable. No focal cystic mass. SPLEEN: Unremarkable. Normal size without focal cystic or solid mass. ADRENALS: Unremarkable. No nodules. KIDNEYS AND URETERS: Bilateral renal calyceal calculi are small and nonobstructing. Renal cysts are benign. No additional follow-up needed. Normal renal size and position. STOMACH AND BOWEL: At least a moderate grade mid-level small bowel bowel obstruction with associates distention of the stomach. Decompressed appearance of the distal small bowel. Obstruction is likely related to an incarcerated umbilical hernia containing a loop of small bowel with fluid in the hernia sac. No definite bowel wall thickening, pneumatosis or portal venous gas. PELVIS: APPENDIX: No evidence of acute appendicitis. BLADDER: Unremarkable. REPRODUCTIVE: Unremarkable as visualized. No mass. ABDOMEN and PELVIS: INTRAPERITONEAL SPACE: Moderate ascites throughout the abdomen/pelvis. No free air. BONES/JOINTS: Moderate to severe compression fracture of the T7 vertebral body. This may be acute or subacute. No underlying pathology or retropulsion. No suspicious lytic or sclerotic lesions of bone. SOFT TISSUES: See above. VASCULATURE: Unremarkable. Abdominal aorta is non-dilated. LYMPH NODES: Unremarkable. No enlarged lymph nodes. CT/Abdomen/Pelvis without Cont IMPRESSION: At least a moderate grade mid-level small bowel bowel obstruction with associates distention of the stomach. Obstruction is likely related to an incarcerated umbilical hernia containing a loop of small bowel with fluid in the hernia sac. Moderate to severe compression fracture of the T7 vertebral body. This may be acute or subacute. No underlying pathology or retropulsion. Electronically Signed: Deven Otero MD at 23:55 EST Tel , Service support ,
--- NOTE | 2021-10-03 23:25 | RAD_ITS ---
EXAM: XR CHEST, 1 VIEW CLINICAL INDICATION: Pneumonia TECHNIQUE: Frontal view of the chest. This report was created using [employer] report generation technology. COMPARISON: 06/21/2021. FINDINGS: LUNGS AND PLEURAL SPACES: Heterogeneous opacities at the left base probably represent partial atelectasis although aspiration and pneumonia can have a similar appearance. No other consolidation. No pneumothorax. No effusion. HEART: Unremarkable. Cardiac silhouette not enlarged. MEDIASTINUM: Central airways and mediastinal contour are unremarkable. BONES/JOINTS: Degenerative changes of the spine. SOFT TISSUES: Unremarkable. VASCULATURE: Atherosclerotic calcifications of the ectatic thoracic arch. RAD/Chest 1 View (Portable) IMPRESSION: Heterogeneous opacities at the left base probably represent partial atelectasis although aspiration and pneumonia can have a similar appearance. Electronically Signed: Deven Otero MD at 23:40 EST Tel , Service support ,
[2021-10-04 00:47] LABS: Mucous, Urine 0 SEEN /hpf (<or=2+); Red Blood Cells-Urine 0 SEEN /hpf (0-5); Squamous Epithelial Cells - UA 0 SEEN /hpf (0-5); White Blood Cells 0 SEEN /hpf (0-5)
[2021-10-04 00:51] VITALS: BP 130/82; PULSE 108; RESP 29; O2SAT 98
[2021-10-04 01:02] LABS: Color, Urine Yellow (Yellow); Glucose, Dipstick Normal (Normal); Ketone-Dipstick 5 mg/dl (Negative); Leukocyte Esterase-Dipstick Negative /ul (Negative); Nitrite-Dipstick Negative (Negative); Occult Blood-Urine Negative /ul (Negative); Protein-Dipstick 15 mg/dl (Negative); Specific Gravity, Urine 1.015 (1.002-1.030); Urine Bilirubin Dipstick Negative (Negative); Urine Clarity Clear (Clear); Urine Urobilinogen Normal (Normal)
[2021-10-04 01:44] LABS: Bacteria RARE /hpf (None Seen)
[2021-10-04 01:58] VITALS: BP 131/81; PULSE 109; RESP 31; O2SAT 98
[2021-10-04 02:04] VITALS: BP 136/81; PULSE 105; RESP 32
[2021-10-04 02:29] LABS: Reflex Lactate? Y
== END 2021-10-04 03:28 | disposition hospice, inpatient (51) ==
PROVIDERS: Emergency Provider Emergency Medicine; PCP Family Medicine; Visit Provider Emergency Medicine
DX: K42.0 Umbilical hernia with obstruction, without gangrene (principal); I50.9 Heart failure, unspecified; E11.22 Type 2 diabetes mellitus with diabetic chronic kidney disease; E87.2 Acidosis; N18.9 Chronic kidney disease, unspecified; E78.5 Hyperlipidemia, unspecified; R62.7 Adult failure to thrive; R29.6 Repeated falls; Z68.22 Body mass index [BMI] 22.0-22.9, adult; Z66 Do not resuscitate; Z51.5 Encounter for palliative care; Z79.899 Other long term (current) drug therapy
CPT/HCPCS: 70450; 71045; 74176; 80053; 81001; 82140; 83605; 83690; 85025; 85610; 87426; 93005; 96360; 99285; A4216